=== PATIENT | male | born 1995 | race Caucasian/White ===

== ENCOUNTER 2017-06-25 19:43 | Emergency (ER) | payer BC ==
[~2017-06-25] VITALS: Ht 177.8 cm; Wt 60.0 kg
[2017-06-25 19:55] VITALS: BP 131/73; PULSE 115; RESP 16; TEMP 97.9; O2SAT 100
[2017-06-25 21:47] VITALS: BP 132/80; PULSE 92; RESP 18; O2SAT 100
[2017-06-25] MEDS ORDERED: SODIUM CHLOR 0.9% 1000 ML INJ 1,000 ML IV SCH (21:52)
[2017-06-25] MEDS ORDERED: chlordiazePOXIDE 25 MG CAP PO STA (21:52)
--- NOTE | 2017-06-25 21:56 | PD ---
HPI Chief Complaint: Medical Clearance Time Seen by Provider: 21:51 Travel History International Travel<30 days: No Contact w/Intl Traveler<30days: No Traveled to known affect area: No History of Present Illness HPI 22-year-old male presents for evaluation of Xanax withdrawal. Patient reports a long-standing history of opiate abuse. He reports that he had sublicade installed subcutaneously on June 01 for help with his opiate abuse. He reports that since then he has been taking Xanax pills which he buys on the street in order to help him cope. He reports that he has been using between 4 and 10 mg on a daily basis. He left [place] yesterday with his mother for a family vacation, vacation over the weekend and and he admitted to her that he has been abusing Xanax. He did not take any today and is therefore concerned that he may have withdrawal seizure. He reports that he has had withdrawal seizures in the past. He is currently feeling slightly dizzy but is otherwise asymptomatic. In regards to other drug use he reports that 2 days ago he snorted some cocaine. He has no other complaints at this time. [facility] Past Medical History Medical History: Denies Significant Hx Past Surgical History Surgical History: No Previous Surgery Social History Alcohol Use: Yes Tobacco Use: Yes Substance Use: Yes (XANAX, OPIATES ) Allergies-Medications (Allergen,Severity, Reaction): Coded Allergies: No Known Allergies (Unverified , 06/25/17) Reported Meds & Prescriptions Reported Meds & Active Scripts Active Chlordiazepoxide HCl 25 Mg Capsule 1 Tab PO QID Review of Systems Except as stated in HPI: all other systems reviewed are Neg Physical Exam Narrative GENERAL: Well-developed well-nourished male in no acute distress. Tachycardic in triage, heart rate 92 on examination. SKIN: Warm and dry. HEAD: Atraumatic. Normocephalic. EYES: Pupils equal and round. No scleral icterus. No injection or drainage. ENT: No nasal bleeding or discharge. Mucous membranes pink and moist. NECK: Trachea midline. No JVD. CARDIOVASCULAR: Regular rate and rhythm. No murmur appreciated. RESPIRATORY: No accessory muscle use. Clear to auscultation. Breath sounds equal bilaterally. GASTROINTESTINAL: Abdomen soft, non-tender, nondistended. Hepatic and splenic margins not palpable. MUSCULOSKELETAL: No obvious deformities. No clubbing. No cyanosis. No edema. NEUROLOGICAL: Awake and alert. No obvious cranial nerve deficits. Motor grossly within normal limits. Normal speech. PSYCHIATRIC: Appropriate mood and affect; insight and judgment normal. Data Data Last Documented VS Vital Signs Date Time Temp Pulse Resp B/P (MAP) Pulse Ox O2 Delivery O2 Flow Rate FiO2 06/25/17 21:47 92 18 132/80 (97) 100 Room Air 06/25/17 19:55 97.9 Orders Orders Complete Blood Count With Diff (06/25/17 21:52) Basic Metabolic Panel (Bmp) (06/25/17 21:52) Drug Screen, Random Urine (06/25/17 21:52) Lorazepam Inj (Ativan Inj) (06/25/17 22:00) Chlordiazepoxide (Librium) (06/25/17 21:52) Sodium Chlor 0.9% 1000 Ml Inj (Ns 1000 M (06/25/17 21:52) Ondansetron Odt (Zofran Odt) (06/25/17 22:00) Labs Laboratory Tests Test 06/25/17 22:02 White Blood Count 5.0 TH/MM3 Red Blood Count 4.48 MIL/MM3 Hemoglobin 14.2 GM/DL Hematocrit 40.1 % Mean Corpuscular Volume 89.5 FL Mean Corpuscular Hemoglobin 31.6 PG Mean Corpuscular Hemoglobin Concent 35.3 % Red Cell Distribution Width 11.9 % Platelet Count 436 TH/MM3 Mean Platelet Volume 5.9 FL Neutrophils (%) (Auto) 38.1 % Lymphocytes (%) (Auto) 40.1 % Monocytes (%) (Auto) 12.0 % Eosinophils (%) (Auto) 8.8 % Basophils (%) (Auto) 1.0 % Neutrophils # (Auto) 1.9 TH/MM3 Lymphocytes # (Auto) 2.0 TH/MM3 Monocytes # (Auto) 0.6 TH/MM3 Eosinophils # (Auto) 0.4 TH/MM3 Basophils # (Auto) 0.0 TH/MM3 CBC Comment DIFF FINAL Differential Comment Blood Urea Nitrogen 7 MG/DL Creatinine 0.89 MG/DL Random Glucose 76 MG/DL Calcium Level 9.2 MG/DL Sodium Level 143 MEQ/L Potassium Level 4.1 MEQ/L Chloride Level 104 MEQ/L Carbon Dioxide Level 31.3 MEQ/L Anion Gap 8 MEQ/L Estimat Glomerular Filtration Rate 107 ML/MIN Urine Opiates Screen NEG Urine Barbiturates Screen NEG Urine Amphetamines Screen POS Urine Benzodiazepines Screen POS Urine Cocaine Screen POS Urine Cannabinoids Screen NEG MDM Medical Decision Making Medical Screen Exam Complete: Yes Emergency Medical Condition: Yes Medical Record Reviewed: Yes Differential Diagnosis Benzodiazepine dependence, benzodiazepine withdrawal, withdrawal seizure Narrative Course The patient will be given IV fluids, sublingual Zofran, Ativan, Librium. Basic lab work, drug screen has been ordered. Drug screen positive for amphetamines, cocaine and benzodiazepines. The patient will be given a short course of Librium. He is scheduled to return to [place] in 3 days. Recommended that he follow-up with his primary care physician for further benzodiazepine taper. He is stable for discharge. Diagnosis Primary Impression: Benzodiazepine dependence Additional Instructions: Medication as prescribed. Follow-up with primary care physician on Wednesday. Return for any emergent medical conditions. Med/Other Pt SpecificInfo: Prescription(s) given Scripts Chlordiazepoxide HCl (Chlordiazepoxide HCl) 25 Mg Capsule 1 TAB PO QID, #15 Prov: Arianna Sierra MD 06/25/17 Disposition: DISCHARGE HOME Condition: Stable Pavan Silva June 25, 2017 21:56
[2017-06-25] MEDS ORDERED: LORazepam 2 MG/ML VIAL IV PUSH ONE (22:00)
[2017-06-25] MEDS ORDERED: ONDANSETRON ODT 4 MG TAB PO ONE (22:00)
[2017-06-25 22:28] LABS: AUTOMATED NEUTROPHIL # 1.9 TH/MM3 (1.8-7.7); EOSINOPHIL # 0.4 TH/MM3 (0-0.4); EOSINOPHIL % 8.8 % (0.0-4.0); HEMATOCRIT 40.1 % (39.0-51.0); HEMOGLOBIN 14.2 GM/DL (13.0-17.0); LYMPH % 40.1 % (9.0-44.0); MEAN CELL VOLUME 89.5 FL (80.0-100.0); MEAN CORPUSCULAR HEMOGLOBIN 31.6 PG (27.0-34.0); MEAN CORPUSCULAR HGB CONC 35.3 % (32.0-36.0); MEAN PLATELET VOLUME 5.9 FL (7.0-11.0); MONOCYTE # 0.6 TH/MM3 (0-0.9); NEUT % 38.1 % (16.0-70.0); PLATELET COUNT 436 TH/MM3 (150-450); RED BLOOD COUNT 4.48 MIL/MM3 (4.50-5.90); RED CELL DISTRIBUTION WIDTH 11.9 % (11.6-17.2)
[2017-06-25] MEDS ORDERED: CHLO25CA9 PO (22:40)
[2017-06-25 22:59] LABS: BICARBONATE 31.3 MEQ/L (21.0-32.0); CALCIUM 9.2 MG/DL (8.5-10.1); CREATININE 0.89 MG/DL (0.60-1.30)
[2017-06-25 23:23] VITALS: BP 119/67; PULSE 97; RESP 18; O2SAT 99
== END 2017-06-25 23:24 | disposition home or self-care (01) ==
LOC: NEPE 19:43
DX: F13.20 Sedative, hypnotic or anxiolytic dependence, uncomplicated (principal); F11.10 Opioid abuse, uncomplicated; R42 Dizziness and giddiness
CPT/HCPCS: 80048; 80307; 85025; 96361; 96374; 99284; J2060; J7030